=== PATIENT | male | born 1990 | race Two or more races ===

== ENCOUNTER 2023-08-18 15:45 | Emergency (ER) | payer OTHER ==
[~2023-08-18] VITALS: Ht 180.3 cm; Wt 67.1 kg
[2023-08-18 16:13] VITALS: BP 121/90; TEMP 98.3; O2SAT 98
== END 2023-08-18 21:21 | disposition left against medical advice (07) ==
LOC: ER 15:57
DX: R21 Rash and other nonspecific skin eruption (principal); Z53.21 Procedure and treatment not carried out due to patient leaving prior to being seen by health care provider